=== PATIENT | female | born 1945 | race African-American/Black ===

== ENCOUNTER → 2017-06-28 | Outpatient (CLI) | payer MEDICARE ==
[2017-06-28 18:22] LABS: BASO % 0.3 % (0.0-2.0); EOS # 0.3 (0.0-0.7); EOS % 3.3 % (0-4.0); GRAN # 3.9 (1.4-6.5); GRAN % 43.7 % (42.2-75.2); HEMATOCRIT 40.7 % (37.0-47.0); HEMOGLOBIN 12.9 g/dl (12.5-16.0); LYMPH # 3.9 (1.2-3.4); LYMPH % 44.6 % (20.0-51.0); MEAN CELL VOLUME 79 fl (80.0-100.0); MEAN CORPUSCULAR HEMOGLOBIN 25 pg (27.0-31.0); MEAN CORPUSCULAR HGB CONC 32 g/dl (33.0-37.0); MEAN PLATELET VOLUME 9.3 fl (7.4-10.4); MONO # 0.7 (0.1-0.6); PLATELET COUNT 267 K/mm3 (130-400); RED BLOOD COUNT 5.17 M/mm3 (4.10-5.30); WHITE BLOOD COUNT 8.8 K/mm3 (4.8-10.8)
[2017-06-28 18:32] LABS: ADJUSTED CALCIUM 9.5 mg/dL (8.4-10.2); ALBUMIN 4.3 gm/dL (3.5-5.0); BILIRUBIN,TOTAL 0.4 mg/dL (0.0-1.0); CALCIUM 9.7 mg/dL (8.4-10.2); CHOLESTEROL RISK RATIO 3.4; CREATININE, serum 0.91 mg/dL (0.52-1.25); TOTAL PROTEIN 8.3 gm/dL (6.4-8.2)
[2017-06-28 19:02] LABS: TSH w REFLEX 0.607 uIU/mL (0.465-4.680)
== END ==
LOC: COL.LAB 17:10
PROVIDERS: Family Medicine
DX: Z13.1 Encounter for screening for diabetes mellitus (principal); Z13.220 Encounter for screening for lipoid disorders; R41.3 Other amnesia; R53.83 Other fatigue

== ENCOUNTER → 2017-07-06 | Outpatient (CLI) | payer MEDICARE | LOC: COL.LAB 11:13 | PROVIDERS: Family Medicine | DX: R41.3 Other amnesia (principal) ==